=== PATIENT | female | born 1950 | race Caucasian/White ===

== ENCOUNTER 2017-07-29 15:44 | Emergency (ER) | payer OTHER ==
[~2017-07-29] VITALS: Ht 149.9 cm; Wt 72.6 kg
[2017-07-29 15:44] VITALS: BP_SYST 165
[2017-07-29] MEDS ORDERED: cloNIDine HCL 0.1 MG TABLET PO ONE (16:45)
[2017-07-29] MEDS ORDERED: hydrALAZINE HCL 20 MG/ML VIAL IM ONE (17:45)
[2017-07-29 18:40] VITALS: BP_SYST 150
== END 2017-07-29 18:38 | disposition home or self-care (01) ==
LOC: SED 15:44
DX: I10 Essential (primary) hypertension (principal)
CPT/HCPCS: 96372; 99283; J0360